=== PATIENT | female | born 1960 | race Caucasian/White ===

== ENCOUNTER 2022-01-16 12:35 | Emergency (ER) | payer MEDICAID ==
[~2022-01-16] VITALS: Ht 160 cm; Wt 65.8 kg
[2022-01-16 12:41] VITALS: BP 121/78
[2022-01-16] MEDS ORDERED: IBUPROFEN 600 MG TAB PO ONE (14:05)
--- NOTE | 2022-01-16 14:33 | NUR ---
61/F BIB SELF WITH C/O CONGESTION AND SINUS PAIN X1 WEEK. DENIES ANY OTHER COLD SYMPTOMS OR RECENT SICK CONTACTS, DENIES FEVERS, REPORTS TAKING TYLENOL WITH MILD RELIEF.
[2022-01-16] MEDS ORDERED: IBUP-2213 PO (14:49)
[2022-01-16] MEDS ORDERED: AMOX1TER15 PO (14:49)
[2022-01-16] MEDS ORDERED: LID5T TP (14:49)
[2022-01-16] MEDS ORDERED: FLONAS NS (14:49)
[2022-01-16] MEDS ORDERED: NITR100C7 PO (14:49)
--- NOTE | 2022-01-16 15:02 | NUR ---
Patient discharged with v/s stable. Written and verbal after care instructions given and explained. Patient alert, oriented and verbalized understanding of instructions. Ambulatory with steady gait. All questions addressed prior to discharge. ID band removed. Patient advised to follow up with PMD. Rx of amoxicillin, fluticasone, ibuprofen, lidocaine, nitrofurantoin (sent) given. Patient educated on indication of medication including possible reaction and side effects. Opportunity to ask questions provided and answered.
[2022-01-16 15:04] VITALS: BP 121/78
== END 2022-01-16 15:02 | disposition home or self-care (01) ==
LOC: MED 12:35
DX: J32.9 Chronic sinusitis, unspecified (principal); M54.50 Low back pain, unspecified; N39.0 Urinary tract infection, site not specified; J45.909 Unspecified asthma, uncomplicated; Z79.899 Other long term (current) drug therapy
CPT/HCPCS: 81002; 99283